=== PATIENT | female | born 1985 | race Hispanic/Latino ===

== ENCOUNTER 2018-10-16 19:15 | Emergency (ER) | payer MEDICAID ==
[2018-10-16 19:59] VITALS: BP 108/67
--- NOTE | 2018-10-16 19:59 | Event Note ---
ED Screening Note Date of service: 10/16/18 Time: 19:54 ED Screening Note: 33 y o f presents with cc of vaginal bleeding x 1 day states she has not had a cycle in over 2 years because she is on depo provera denies abdominal pain This initial assessment/diagnostic orders/clinical plan/treatment(s) is/are subject to change based on patients health status, clinical progression and re- assessment by fellow clinical providers in the ED. Further treatment and workup at subsequent clinical providers discretion. Patient/guardian urged not to elope from the ED as their condition may be serious if not clinically assessed and managed. Initial orders include: ua, upt
[2018-10-16 21:48] LABS: Bilirubin,Urine NEG (Negative); Blood,Urine MOD (Negative); Color,Urine Yellow (Yellow); HCG Qualitative,Urine Negative (Negative); Mucus,Urine 1+ /HPF; Protein,Urine <15 mg/dL mg/dL (Negative)
--- NOTE | 2018-10-16 22:10 | Emergency Department Report ---
ED Dysuria HPI - HPI Stated Complaint: SPOTTING Time Seen by Provider: 10/16/18 19:54 Location of Discomfort: Urethra (dysuria) Severity: Mild Symptoms: Dysuria: No, Frequency: No, Suprapubic Pain: No, Flank Pain: No, Fev er: No, Hematuria: No, Abdominal Pain: No, Previous UTI's: No Other History: 33 YO FEMALE WITH RECENT UTI. HAD VAG SPOTTING YESTERDAY. GETS DEPO. CONCERNED SHE HAS UTI OR IS . NO N/V/D. SHE HAS NO FEVER OR CHILLS. SHE HAS NO PAIN CONSISTENT WITH K STONE. SHE FINSHED 3 DAYS OF BACTRIM. SHE DOES NOT HAVE REG PERIODS ON DEPO. NO VAG DC ED Review of Systems ROS: Stated complaint: SPOTTING/BACK PAIN Other details as noted in HPI Comment: All other systems reviewed and negative ED Past Medical Hx - Past Medical History Previous Medical History?: No - Surgical History Past Surgical History?: No - Family History Family history: no significant - Social History Smoking Status: Never Smoker Substance Use Type: None - Medications Home Medications: Home Medications Medication Instructions Recorded Confirmed Last Taken Type Ciprofloxacin HCl [Ciprofloxacin 500 mg PO Q12HR #14 tab 10/16/18 Unknown Rx TAB] Dysuria Exam - Exam General: Vital signs noted. No distress. Alert and acting appropriately. Exam: Yes Moist Mucous Membranes, No CVA Tenderness, No Abdominal Tenderness, No Rigidity or Guarding Labs: Lab Results 10/16/18 Range/Units 21:01 Urine Color Yellow (Yellow) Urine Turbidity Clear (Clear) Urine pH 7.0 (5.0-7.0) Ur Specific [place] 1.023 (1.003-1.030) Urine Protein <15 mg/dl (Negative) mg/dL Urine Glucose (UA) Neg (Negative) mg/dL Urine Ketones Neg (Negative) mg/dL Urine Blood Mod (Negative) Urine Nitrite Neg (Negative) Urine Bilirubin Neg (Negative) Urine Urobilinogen 2.0 (<2.0) mg/dL Ur Leukocyte Esterase Neg (Negative) Urine WBC (Auto) 2.0 (0.0-6.0) /HPF Urine RBC (Auto) 7.0 (0.0-6.0) /HPF U Epithel Cells (Auto) 3.0 (0-13.0) /HPF Urine Mucus 1+ /HPF Urine HCG, Qual Negative (Negative) ED Course Vital Signs 10/16/18 19:55 Temperature 98.7 F Pulse Rate 68 Respiratory 18 Rate Blood Pressure 108/67 O2 Sat by Pulse 98 Oximetry ED Medical Decision Making - Medical Decision Making Lab Results 10/16/18 Range/Units 21:01 Urine Color Yellow (Yellow) Urine Turbidity Clear (Clear) Urine pH 7.0 (5.0-7.0) Ur Specific [place] 1.023 (1.003-1.030) Urine Protein <15 mg/dl (Negative) mg/dL Urine Glucose (UA) Neg (Negative) mg/dL Urine Ketones Neg (Negative) mg/dL Urine Blood Mod (Negative) Urine Nitrite Neg (Negative) Urine Bilirubin Neg (Negative) Urine Urobilinogen 2.0 (<2.0) mg/dL Ur Leukocyte Esterase Neg (Negative) Urine WBC (Auto) 2.0 (0.0-6.0) /HPF Urine RBC (Auto) 7.0 (0.0-6.0) /HPF U Epithel Cells (Auto) 3.0 (0-13.0) /HPF Urine Mucus 1+ /HPF Urine HCG, Qual Negative (Negative) Vital Signs 10/16/18 19:55 Temperature 98.7 F Pulse Rate 68 Respiratory 18 Rate Blood Pressure 108/67 O2 Sat by Pulse 98 Oximetry 33 YO FEMALE WITH RECENT UTI. HAD VAG SPOTTING YESTERDAY. GETS DEPO. CONCERNED SHE HAS UTI OR IS . NO N/V/D. SHE HAS NO FEVER OR CHILLS. SHE HAS NO PAIN CONSISTENT WITH [facility] STONE SHE FINISHED 3 DAYS OF BACTRIM SHE DOES NOT HAVE REG PERIODS ON DEPO NO VAG DC ABD SNT NO CVA TENDERNESS NON TOXIC TAKING PO AND AMBULATORY UA NOTED UPREG NET WILL DC HOME WITH CIPRO FOR CYSTITIS AND FOLLOW UP WITH OBGYN PT EDUCATED AND VERBALIZES UNDERSTANDING. - Differential Diagnosis RO PREG; RO UTI Critical care attestation.: If time is entered above; I have spent that time in minutes in the direct care of this critically ill patient, excluding procedure time. ED Disposition Clinical Impression: Cystitis Disposition: DC-01 TO HOME OR SELFCARE Is pt being admited?: No Does the pt Need Aspirin: No Condition: Stable Additional Instructions: MED ORDERED TODAY FOLLOW UP WITH OBGYN AFTER YOU FINISH THIS MEDICATION REFERRAL BELOW DRINK A LOT OF WATER Referrals: RIAN BAKER MD [Staff Physician] - 3-5 Days Time of Disposition: 22:06
== END 2018-10-16 23:07 | disposition home or self-care (01) ==
LOC: ED 19:15
DX: N30.90 Cystitis, unspecified without hematuria (principal); Z79.899 Other long term (current) drug therapy
CPT/HCPCS: 81001; 81025